=== PATIENT | male | born 1970 | race Caucasian/White ===

== ENCOUNTER 2022-03-14 10:08 | Emergency (ER) | payer OTHER ==
[~2022-03-14] VITALS: Ht 188 cm; Wt 81.6 kg
[2022-03-14] MEDS ORDERED: MOLNUPIRAVIR (200 MG PO (12:12)
== END 2022-03-14 12:25 | disposition home or self-care (01) ==
LOC: ER 10:08
DX: U07.1 COVID-19 (principal)